=== PATIENT | male | born 1990 | race Caucasian/White ===

== ENCOUNTER 2023-09-22 02:39 | Outpatient (CLI) | payer MEDICAID | END 2023-09-22 23:59 | disposition critical access hospital (66) | LOC: EMS 02:39 | DX: F11.23 Opioid dependence with withdrawal (principal) | CPT/HCPCS: A0425; A0429; A0999 ==

== ENCOUNTER 2023-09-22 03:02 | Emergency (ER) | payer MEDICARE, MEDICAID ==
--- NOTE | 2023-09-22 03:17 | ED Physician Documentation ---
History of Present Illness - Stated complaint Stated Complaint: MALAISE, CHEST DISCOMFORT, FENTANYL - History obtained from History obtained from: Patient - Additonal information Additional information: 33yM presents after leaving [facility]. He is unable to return for 72 hours per policy and just requesting a safe place to sleep tonight. denies other concerns. States his grandmother can pick him up in morning. PD PAST MEDICAL HISTORY - Allergies Allergies/Adverse Reactions: Allergies Allergy/AdvReac Type Severity Reaction Status Date / Time No Known Drug Allergies Allergy Verified 09/22/23 03:14 PD ED PE NORMAL - Vitals Vital signs reviewed: Yes - General General: Alert and oriented X 3, No acute distress, Well developed/nourished - HEENT HEENT: Atraumatic, PERRL, EOMI - Neck Neck: Supple, no meningeal sign - Cardiac Cardiac: RRR - Respiratory Respiratory: No respiratory distress, Clear bilaterally - Abdomen Abdomen: Non tender, Non distended - Derm Derm: Normal color, Warm and dry - Neuro Neuro: Alert and oriented X 3 Results - Vitals Vitals: Vital Signs - 24 hr 09/22/23 03:03 Temperature 37.0 C Heart Rate 80 Respiratory 20 Rate Blood Pressure 126/89 H O2 Saturation 98 Oxygen O2 Source Room air PD Medical Decision Making - ED course ED course: 33yM with history of fentanyl dependence presents after leaving [facility] drug stabilization facility. He is unable to return for 72 hours. He states a relative can pick him up in the morning. In light of this, and no other complaints, we will hold off on further workup. Note that the ED team determined that patient would need to release his clothes and belongings while in the ED in order to ensure no further drug use. At 3:45am, waitstaff alerted me that the patient had taken a drag of his vape pen prior to relinquishing his clothes. It was agreed that this was not acceptable and discharge paperwork was completed and printed at that time. Departure - Departure Disposition: 01 Home, Self Care Clinical Impression: Fentanyl dependence Condition: Stable Instructions: ED Drug Abuse General Comments: You were seen in the emergency department for medical evaluation. Please follow-up with your primary care provider and return to the emergency department if you have any new or worsening symptoms or other concerns.
[2023-09-22 03:26] VITALS: BP 126/89; O2SAT 98
== END 2023-09-22 06:00 | disposition home or self-care (01) ==
LOC: ED 03:02
DX: F11.20 Opioid dependence, uncomplicated (principal)
CPT/HCPCS: 99283